=== PATIENT | female | born 1935 | race Caucasian/White ===

== ENCOUNTER 2022-10-25 11:05 | Inpatient (IN) | payer OTHER, MEDICARE ==
[2022-10-25 12:30] LABS: BASO % 0.2 % (0-2.0); HEMATOCRIT 35.8 % (32.4-45.2); HEMOGLOBIN 12.1 GM/dL (10.7-15.3); LYMPH % 8.1 % (8-40); MCH 28.1 pg (25.7-33.7); MCHC 33.8 g/dl (32.0-36.0); MEAN PLT VOLUME 6.7 fl (7.5-11.1); NEUT % 84.7 % (42.8-82.8); PLATELET COUNT 233 10^3/uL (134-434); RBC 4.32 M/mm3 (3.60-5.2); RDW 14.7 % (11.6-15.6); WHITE BLOOD COUNT 7.4 K/mm3 (4.0-10.0)
[2022-10-25 13:11] LABS: ALBUMIN 3.2 g/dl (3.4-5.0); BLOOD UREA NITROGEN 16.6 mg/dL (7-18); CALCIUM 8.9 mg/dL (8.5-10.1)
[2022-10-25 13:12] LABS: MAGNESIUM 1.8 mg/dL (1.8-2.4)
[2022-10-25 13:14] LABS: CREATININE 0.6 mg/dL (0.55-1.3); PHOSPHOROUS 2.9 mg/dL (2.5-4.9)
[2022-10-25 13:15] LABS: BILIRUBIN,TOTAL 1.1 mg/dL (0.2-1)
[2022-10-25 13:16] LABS: TOT PROT 6.4 g/dl (6.4-8.2)
[2022-10-25] MEDS ORDERED: SODIUM CHLORIDE 0.9% 500 ML INFUS.BAG IV ONE ×2 (14:38→15:51)
[2022-10-25] MEDS ORDERED: CEFTRIAXONE 1,000 MG in DEXTROSE 5%-WATER - 50 ML IVPB ONE (15:38)
[2022-10-25] MEDS ORDERED: VANCOMYCIN/WATER 1,250 MG/250 ML BAG (RESTRICTED TO ID ONLY) IVPB ONE (15:42)
[2022-10-25] MEDS ORDERED: PIPERACILLIN/TAZOB 4.5 GM 4.5 GM in DEXTROSE 5%-WATER 100 ML IVPB ONE (15:43)
[2022-10-25 15:47] LABS: EPI CELLS 16 /uL (0-25.1); HYALINE CASTS 1 /uL (0-3.1); URINE APPEARANCE CLOUDY; URINE BACTERIA >9,000 /uL (0-1359); URINE BILIRUBIN NEGATIVE (NEGATIVE); URINE COLOR YELLOW; URINE GLUCOSE (UA) NEGATIVE (NEGATIVE); URINE KETONE TRACE (NEGATIVE); URINE LEUK ESTERASE NEGATIVE (NEGATIVE); URINE NITRITE NEGATIVE (NEGATIVE); URINE PROTEIN TRACE (NEGATIVE); URINE RBC 23 /uL (0-23.9); URINE WBC 27 /uL (0-25.8)
[2022-10-25] MEDS ORDERED: VANCOMYCIN/WATER 1250 MG 1,250 MG/250 ML BAG IVPB ONE (15:54)
[2022-10-25] MEDS ORDERED: PIPERACILLIN/TAZOB 4.5 GM 4.5 GM/100 ML BAG IVPB ONE (15:54)
[2022-10-25] MEDS ORDERED: METOPROLOL TARTRATE 5 MG/5 ML VIAL IVPUSH ONE (16:05)
[2022-10-25] MEDS ORDERED: METOPROLOL TARTRATE 50 MG TABLET (FP) PO ONE (16:07)
[2022-10-25] MEDS ORDERED: METOPROLOL TARTRATE 5 MG/5 ML VIAL IVPUSH PRN (16:12)
[2022-10-25] MEDS ORDERED: METOPROLOL TARTRATE 5 MG/5 ML VIAL ONE (16:33)
[2022-10-25] MEDS ORDERED: METOPROLOL TARTRATE 50 MG TABLET (FP) ONE (16:33)
[2022-10-25 16:51] VITALS: BMI 30.7
[2022-10-25] MEDS ORDERED: PNEUMOC 20-VAL CONJ-DIP CRM/PF 0.5 ML SYRINGE IM ONE (17:16)
[2022-10-25] MEDS: D5-1/2NS+20 MEQ KCL - 20 MEQ/1,000 ML INFUS.BAG IV SCH (17:56)
[2022-10-25] MEDS ORDERED: METOPROLOL TARTRATE 50 MG TABLET (FP) PO SCH (22:00)
[2022-10-25] MEDS: ACETAMINOPHEN 325 MG TABLET (FP) PO PRN (23:45)
[2022-10-26] MEDS: LEVOTHYROXINE NA 75 MCG TABLET (FP) PO SCH (06:24)
[2022-10-26 08:37] LABS: BASO % 0.3 % (0-2.0); EOS % 0.2 % (0-4.5); HEMATOCRIT 35.8 % (32.4-45.2); LYMPH % 18.5 % (8-40); MCH 27.9 pg (25.7-33.7); MCHC 33.6 g/dl (32.0-36.0); MONO % 8.8 % (3.8-10.2); NEUT % 72.2 % (42.8-82.8); PLATELET COUNT 234 10^3/uL (134-434); RBC 4.31 M/mm3 (3.60-5.2); RDW 14.7 % (11.6-15.6); WHITE BLOOD COUNT 6.3 K/mm3 (4.0-10.0)
[2022-10-26 09:07] LABS: BLOOD UREA NITROGEN 11.8 mg/dL (7-18); CALCIUM 8.1 mg/dL (8.5-10.1)
[2022-10-26 09:08] LABS: ALBUMIN 2.9 g/dl (3.4-5.0)
[2022-10-26 09:10] LABS: BILIRUBIN,TOTAL 0.9 mg/dL (0.2-1); CREATININE 0.5 mg/dL (0.55-1.3)
[2022-10-26] MEDS ORDERED: AMIODARONE HCL 200 MG TABLET PO SCH (10:00)
[2022-10-26] MEDS ORDERED: PNEUMOC 20-VAL CONJ-DIP CRM/PF 0.5 ML SYRINGE IM ONE (10:00)
[2022-10-26] MEDS ORDERED: valACYclovir HCL 500 MG TABLET (FP) ONE ×2 (11:05→22:19)
[2022-10-26] MEDS: valACYclovir HCL 1000 MG TABLET PO SCH ×2 (11:21→22:28)
[2022-10-26] MEDS: D5-1/2NS+20 MEQ KCL - 20 MEQ/1,000 ML INFUS.BAG IV SCH ×2 (11:25→12:00)
[2022-10-26] MEDS ORDERED: DIGOXIN 0.125 MG TABLET PO SCH (14:30)
[2022-10-26] MEDS ORDERED: POTASSIUM CHLORIDE TABS 20 MEQ TABLET.ER (FP) PO ONE (15:37)
[2022-10-26] MEDS ORDERED: MAGNESIUM OXIDE 400 MG TABLET (FP) PO ONE (15:39)
[2022-10-26] MEDS: CEFTRIAXONE 1 GM in DEXTROSE 5%-WATER - 50 ML IVPB SCH (15:53)
[2022-10-26] MEDS: METOPROLOL TARTRATE 50 MG TABLET (FP) PO SCH ×2 (15:54→22:27)
[2022-10-26] MEDS: dilTIAZem HCL 30 MG TABLET PO SCH (17:26)
[2022-10-26] MEDS ORDERED: METOPROLOL TARTRATE 50 MG TABLET (FP) PO SCH (22:00)
[2022-10-26] MEDS: ACETAMINOPHEN 325 MG TABLET (FP) PO PRN (22:26)
[2022-10-26] MEDS: ENOXAPARIN NA (PORCINE) 80 MG/0.8 ML DISP.SYRIN SQ SCH (22:27)
[2022-10-27] MEDS: dilTIAZem HCL 30 MG TABLET PO SCH ×3 (00:20→12:23)
[2022-10-27] MEDS: LEVOTHYROXINE NA 75 MCG TABLET (FP) PO SCH (06:06)
[2022-10-27 08:50] LABS: BASO % 0.6 % (0-2.0); EOS % 1.2 % (0-4.5); HEMATOCRIT 32.6 % (32.4-45.2); HEMOGLOBIN 11.3 GM/dL (10.7-15.3); LYMPH % 27.8 % (8-40); MCHC 34.7 g/dl (32.0-36.0); MEAN CELL VOLUME 83.5 fl (80-96); MONO % 9.9 % (3.8-10.2); NEUT % 60.5 % (42.8-82.8); PLATELET COUNT 213 10^3/uL (134-434); RBC 3.91 M/mm3 (3.60-5.2); RDW 14.8 % (11.6-15.6); WHITE BLOOD COUNT 5.2 K/mm3 (4.0-10.0)
[2022-10-27 09:16] LABS: TOT PROT 5.4 g/dl (6.4-8.2)
[2022-10-27 09:19] LABS: CREATININE 0.4 mg/dL (0.55-1.3)
[2022-10-27 09:21] LABS: CALCIUM 8.1 mg/dL (8.5-10.1)
[2022-10-27 09:22] LABS: ALBUMIN 2.5 g/dl (3.4-5.0); BLOOD UREA NITROGEN 10.9 mg/dL (7-18)
[2022-10-27 09:28] LABS: BILIRUBIN,TOTAL 0.9 mg/dL (0.2-1)
[2022-10-27] MEDS ORDERED: valACYclovir HCL 500 MG TABLET (FP) ONE ×2 (10:29→21:47)
[2022-10-27] MEDS: CEFTRIAXONE 1 GM in DEXTROSE 5%-WATER - 50 ML IVPB SCH (10:32)
[2022-10-27] MEDS: ENOXAPARIN NA (PORCINE) 80 MG/0.8 ML DISP.SYRIN SQ SCH ×2 (10:33→23:04)
[2022-10-27] MEDS: METOPROLOL TARTRATE 25 MG TABLET (FP) PO SCH ×2 (10:33→22:59)
[2022-10-27] MEDS: valACYclovir HCL 1000 MG TABLET PO SCH ×2 (10:33→23:11)
[2022-10-27] MEDS: METOPROLOL TARTRATE 5 MG/5 ML VIAL IVPUSH PRN ×2 (11:17→18:24)
[2022-10-27] MEDS: dilTIAZem HCL 60 MG TABLET PO SCH ×2 (17:31→22:00)
[2022-10-27] MEDS: D5-1/2NS+20 MEQ KCL - 20 MEQ/1,000 ML INFUS.BAG IV SCH (18:24)
[2022-10-27] MEDS: ACETAMINOPHEN 325 MG TABLET (FP) PO PRN (23:09)
[2022-10-28] MEDS: dilTIAZem HCL 60 MG TABLET PO SCH ×2 (06:40→11:47)
[2022-10-28] MEDS: LEVOTHYROXINE NA 75 MCG TABLET (FP) PO SCH (06:41)
[2022-10-28] MEDS: METOPROLOL TARTRATE 5 MG/5 ML VIAL IVPUSH PRN ×2 (08:26→17:55)
[2022-10-28] MEDS: CEFTRIAXONE 1 GM in DEXTROSE 5%-WATER - 50 ML IVPB SCH (10:21)
[2022-10-28] MEDS: METOPROLOL TARTRATE 50 MG TABLET (FP) PO SCH ×2 (10:22→21:29)
[2022-10-28] MEDS: ENOXAPARIN NA (PORCINE) 80 MG/0.8 ML DISP.SYRIN SQ SCH ×2 (10:22→21:29)
[2022-10-28] MEDS: valACYclovir HCL 500 MG TABLET (FP) PO SCH ×2 (10:23→21:28)
[2022-10-28] MEDS: POLYETHYLENE GLYCOL (HEALTHYLAX) 3350 17 GM PACKET PO SCH ×2 (10:30→21:28)
[2022-10-28] MEDS ORDERED: IRON SUCROSE INJECTION 200 MG in SODIUM CHLORIDE 90 ML IVPB ONE (17:00)
[2022-10-28] MEDS: dilTIAZem HCL 30 MG TABLET PO SCH ×2 (17:38→23:35)
[2022-10-29] MEDS: dilTIAZem HCL 30 MG TABLET PO SCH ×3 (06:16→18:14)
[2022-10-29] MEDS: LEVOTHYROXINE NA 75 MCG TABLET (FP) PO SCH (06:17)
[2022-10-29] MEDS: POTASSIUM CHLORIDE TABS 10 MEQ TABLET.ER (FP) PO SCH (09:17)
[2022-10-29] MEDS: METOPROLOL TARTRATE 50 MG TABLET (FP) PO SCH ×2 (09:18→21:09)
[2022-10-29] MEDS: ENOXAPARIN NA (PORCINE) 80 MG/0.8 ML DISP.SYRIN SQ SCH (09:18)
[2022-10-29] MEDS: valACYclovir HCL 500 MG TABLET (FP) PO SCH ×2 (09:18→21:10)
[2022-10-29] MEDS: POLYETHYLENE GLYCOL (HEALTHYLAX) 3350 17 GM PACKET PO SCH ×2 (09:19→21:10)
[2022-10-29] MEDS: AMOX TR/POT CLAV 500MG/125MG TABLETS (FP) PO SCH ×2 (09:19→18:14)
[2022-10-29] MEDS: APIXABAN 5 MG TABLET PO SCH (21:09)
[2022-10-30] MEDS: dilTIAZem HCL 30 MG TABLET PO SCH ×4 (00:17→17:36)
[2022-10-30] MEDS: LEVOTHYROXINE NA 75 MCG TABLET (FP) PO SCH (06:18)
[2022-10-30] MEDS: APIXABAN 5 MG TABLET PO SCH ×2 (09:36→22:25)
[2022-10-30] MEDS: POTASSIUM CHLORIDE TABS 10 MEQ TABLET.ER (FP) PO SCH (09:36)
[2022-10-30] MEDS: valACYclovir HCL 500 MG TABLET (FP) PO SCH ×2 (09:36→22:25)
[2022-10-30] MEDS: METOPROLOL TARTRATE 50 MG TABLET (FP) PO SCH (09:37)
[2022-10-30] MEDS: AMOX TR/POT CLAV 500MG/125MG TABLETS (FP) PO SCH ×2 (09:37→17:36)
[2022-10-30] MEDS: POLYETHYLENE GLYCOL (HEALTHYLAX) 3350 17 GM PACKET PO SCH ×3 (09:42→22:40)
[2022-10-30] MEDS ORDERED: DIGOXIN 0.25 MG TABLET PO ONE ×3 (11:36→17:00)
[2022-10-30] MEDS ORDERED: METOPROLOL TARTRATE 5 MG/5 ML VIAL IVPUSH ONE (20:45)
[2022-10-31] MEDS: METOPROLOL TARTRATE 50 MG TABLET (FP) PO SCH ×3 (00:39→22:40)
[2022-10-31] MEDS: dilTIAZem HCL 30 MG TABLET PO SCH ×2 (00:51→06:43)
[2022-10-31] MEDS: LEVOTHYROXINE NA 75 MCG TABLET (FP) PO SCH (06:43)
[2022-10-31] MEDS: DIGOXIN 0.125 MG TABLET PO SCH (08:57)
[2022-10-31] MEDS: valACYclovir HCL 500 MG TABLET (FP) PO SCH ×2 (09:20→22:40)
[2022-10-31] MEDS: POLYETHYLENE GLYCOL (HEALTHYLAX) 3350 17 GM PACKET PO SCH ×2 (09:20→22:41)
[2022-10-31] MEDS: APIXABAN 5 MG TABLET PO SCH ×2 (09:21→22:40)
[2022-10-31] MEDS: AMOX TR/POT CLAV 500MG/125MG TABLETS (FP) PO SCH ×2 (09:21→18:16)
[2022-10-31] MEDS: POTASSIUM CHLORIDE TABS 10 MEQ TABLET.ER (FP) PO SCH (09:21)
[2022-10-31] MEDS: TAMSULOSIN HCL 0.4 MG CAP PO SCH (13:16)
[2022-11-01] MEDS: LEVOTHYROXINE NA 75 MCG TABLET (FP) PO SCH (06:24)
[2022-11-01] MEDS: TAMSULOSIN HCL 0.4 MG CAP PO SCH (08:50)
[2022-11-01] MEDS: AMOX TR/POT CLAV 500MG/125MG TABLETS (FP) PO SCH ×2 (08:50→17:00)
[2022-11-01] MEDS: POTASSIUM CHLORIDE TABS 10 MEQ TABLET.ER (FP) PO SCH (08:59)
[2022-11-01] MEDS: METOPROLOL TARTRATE 50 MG TABLET (FP) PO SCH ×2 (08:59→21:07)
[2022-11-01] MEDS: DIGOXIN 0.125 MG TABLET PO SCH (08:59)
[2022-11-01] MEDS: valACYclovir HCL 500 MG TABLET (FP) PO SCH ×2 (08:59→21:07)
[2022-11-01] MEDS: APIXABAN 5 MG TABLET PO SCH ×2 (08:59→21:08)
[2022-11-01] MEDS: POLYETHYLENE GLYCOL (HEALTHYLAX) 3350 17 GM PACKET PO SCH ×2 (08:59→21:09)
[2022-11-01] MEDS ORDERED: METOPROLOL TARTRATE 50 MG TABLET (FP) PO ONE (12:15)
[2022-11-01] MEDS ORDERED: IRON SUCROSE INJECTION 200 MG in SODIUM CHLORIDE 90 ML IVPB ONE (18:30)
[2022-11-02] MEDS: LEVOTHYROXINE NA 75 MCG TABLET (FP) PO SCH (06:11)
[2022-11-02] MEDS: AMOX TR/POT CLAV 500MG/125MG TABLETS (FP) PO SCH ×2 (07:46→16:39)
[2022-11-02] MEDS: TAMSULOSIN HCL 0.4 MG CAP PO SCH ×2 (07:46→08:18)
[2022-11-02 07:54] LABS: BASO % 0.4 % (0-2.0); EOS % 2.1 % (0-4.5); HEMATOCRIT 32.8 % (32.4-45.2); HEMOGLOBIN 11.4 GM/dL (10.7-15.3); LYMPH % 20.2 % (8-40); MCH 29.2 pg (25.7-33.7); MCHC 34.9 g/dl (32.0-36.0); MEAN CELL VOLUME 83.6 fl (80-96); MEAN PLT VOLUME 6.4 fl (7.5-11.1); MONO % 8.1 % (3.8-10.2); NEUT % 69.2 % (42.8-82.8); PLATELET COUNT 376 10^3/uL (134-434); RBC 3.92 M/mm3 (3.60-5.2); RDW 14.1 % (11.6-15.6); WHITE BLOOD COUNT 8.6 K/mm3 (4.0-10.0)
[2022-11-02 08:25] LABS: PHOSPHOROUS 3.2 mg/dL (2.5-4.9)
[2022-11-02 08:33] LABS: CALCIUM 8.8 mg/dL (8.5-10.1)
[2022-11-02 08:34] LABS: BLOOD UREA NITROGEN 11.9 mg/dL (7-18); CREATININE 0.4 mg/dL (0.55-1.3); MAGNESIUM 2.1 mg/dL (1.8-2.4)
[2022-11-02] MEDS: DIGOXIN 0.125 MG TABLET PO SCH (09:44)
[2022-11-02] MEDS: METOPROLOL TARTRATE 50 MG TABLET (FP) PO SCH ×2 (09:44→21:06)
[2022-11-02] MEDS: valACYclovir HCL 500 MG TABLET (FP) PO SCH ×2 (09:44→21:05)
[2022-11-02] MEDS: POLYETHYLENE GLYCOL (HEALTHYLAX) 3350 17 GM PACKET PO SCH ×2 (09:44→21:06)
[2022-11-02] MEDS: APIXABAN 5 MG TABLET PO SCH ×2 (09:44→21:05)
[2022-11-02] MEDS: POTASSIUM CHLORIDE TABS 10 MEQ TABLET.ER (FP) PO SCH (09:44)
[2022-11-03] MEDS: LEVOTHYROXINE NA 75 MCG TABLET (FP) PO SCH (06:11)
[2022-11-03] MEDS ORDERED: METOPROLOL TARTRATE 50 MG TABLET (FP) PO SCH ×2 (07:28→08:30)
[2022-11-03 08:12] VITALS: RESP 18
[2022-11-03] MEDS: TAMSULOSIN HCL 0.4 MG CAP PO SCH (08:44)
[2022-11-03] MEDS: AMOX TR/POT CLAV 500MG/125MG TABLETS (FP) PO SCH (08:44)
[2022-11-03 08:46] VITALS: BP 130/61; PULSE 113; TEMP 98.4
[2022-11-03] MEDS: POTASSIUM CHLORIDE TABS 10 MEQ TABLET.ER (FP) PO SCH (09:02)
[2022-11-03] MEDS: APIXABAN 5 MG TABLET PO SCH (09:02)
[2022-11-03] MEDS: DIGOXIN 0.125 MG TABLET PO SCH (09:02)
[2022-11-03] MEDS: POLYETHYLENE GLYCOL (HEALTHYLAX) 3350 17 GM PACKET PO SCH (09:02)
[2022-11-03] MEDS: valACYclovir HCL 500 MG TABLET (FP) PO SCH (09:02)
== END 2022-11-03 09:45 | DRG 690 ==
LOC: JER 11:05 → JERBED 16:07 → J4W 22:24
PROVIDERS: ADMIT Family Medicine; ATTEND Family Medicine
DX: N39.0 Urinary tract infection, site not specified (principal); B02.9 Zoster without complications; R55 Syncope and collapse; I48.91 Unspecified atrial fibrillation; E03.9 Hypothyroidism, unspecified; E87.6 Hypokalemia; E66.9 Obesity, unspecified; Z68.30 Body mass index [BMI] 30.0-30.9, adult
CPT/HCPCS: 36415; 70450-TC; 70551-TC; 71045-TC-FY; 72170-TC-FY; 80048; 80053; 80061; 81003; 82728; 82962; 82977; 83036; 83540; 83550; 83735; 84100; 84443; 84484; 85025; 87040; 87086; 87186; 90677; 93005; 93010; 93306-TC; 93308; 97116-GP; 97162-GP; 99291; C9803-CS; J1756; U0003; U0005